=== PATIENT | male | born 1955 | race Caucasian/White ===

== ENCOUNTER 2017-02-27 11:21 | Emergency (ER) | payer OTHER ==
[2017-02-27] MEDS ORDERED: DILAUDID INJ IM ONE (11:34)
[2017-02-27] MEDS ORDERED: NS 1000 ML 1,000 ML ONE (11:36)
[2017-02-27 11:37] VITALS: BMI 28.7
--- NOTE | 2017-02-27 11:37 | DR.GENAD ---
HPI - PCP Primary Care Physician: nfd - Complaint/Symptoms Chief Complaint Doctors Comments: Patient was using a floor leveling ageng ( Luke) one week ago states that he had blister formatin of both hands 10/10 pain. He continues to have pain s/p ruptering the blisters of the hands but improving> The penis continues to be painful and monroe. Chief Complaint:: patient stated he was using hydrolic cement sunday and got it on his hands. he has 2 blisters to each palm with the skin pealing back. he also stated he has blisters on his penis and it monroe to urinate. - Source History Provided: Patient - Mode of Arrival Mode of Arrival: Ambulatory - Timing Onset of Chief Complaint: 02/25/17 PMH - PMH Past Medical History: Yes Past Medical History: Hyperthyroidism Past Surgical History: Yes Surgical History: Ortho Surgery - Family History History of Family Medical Conditions: No - Social History Does patient currently use any type of tobacco product: No Have you used tobacco products in the last 12 months: No Type of Tobacco Use: None Does any household member use tobacco: No Alcohol Use: None Do you use any recreational Drugs:: No Lives Where: Home - infectious screening In the last 2 months have you had wt loss of >10#?: NO Have you had fever, night sweats or hemotysis?: No Have you traveled outside the country in the last 6 months?: No Isolation: Standard ROS - Review of Systems Eyes: No Symptoms Reported ENTM: No Symptoms Reported Respiratoy: No Symptoms Reported Cardiovascular: No Symptoms Reported Gastrointestinal/Abdominal: No Symptoms Reported Genitourinary: No Symptoms Reported Neurological: No Symptoms Reported Musculoskeletal: No Symptoms Reported Integumentary: No Symptoms Reported Hematologic/Lymphatic: No Symptoms Reported Endocrine: No Symptoms Reported Psychiatric: No Symptoms Reported All Other Systems: Reviewed and Negative PE - Vital Signs Vitals: Temperature 98.9 F Pulse Rate [Right Brachial] 70 Pulse Rate 91 Respiratory Rate 16 Blood Pressure [Right Arm] 172/98 Blood Pressure 223/107 O2 Sat by Pulse Oximetry 99 - General General Appearance: Alert, In No Apparent Distress, Anxious - Head Head Exam: Normal Inspection, Atraumatic - Eyes Eye exam: Normal Appearance, PERRL, EOMI - ENT ENT Exam: Normal Exam External Ear Exam: Normal External Inspection TM/Canal Exam: Bilateral Normal Nose Exam: Normal Nose Exam Mouth Exam: Normal Inspection Throat Exam: Normal Inspection - Neck Neck Exam: Normal Inspection - Chest Chest Inspection: Normal Inspection - Respiratory Respiratory Exam: Normal Lung Sounds Bilat Respiratory Exam: Bilateral Clear to Auscultation - Cardiovascular Cardiovascular Exam: Regular Rate, Normal Rhythm - Abdominal Exam Abdominal Exam: Normal Inspection, Normal Bowel Sounds Abdominal Tenderness: negative: RUQ, RLQ, LUQ, LLQ, Epigastrium, Suprapubic, Diffuse, Mild, Moderate, Severe, Other - Extremities Extremities Exam: Other (peeling of palmar surface of hands) - Back Back Exam: Normal Inspection, Full ROM - Neurologic Neurological Exam: Alert, Oriented X3, CN II-XII Intact - Psychiatric Psychiatric Exam: Normal Affect, Normal Mood - Skin Skin Exam: Warm, Dry, Other (penis is irritated slightly edematous glans reddish with minimal fissuring of shaft) Course - Treatment Treatment: [facility] with [facility], recommended sending to the [facility], will see between 8 and 10AM; NPO after midnight. Pain is controlled. - Diagnosis Discharge Problem: corresive contact dermatitis Contact dermatitis Qualifiers: Contact dermatitis type: irritant Contact dermatitis trigger: solvent Qualified Code(s): L24.2 - Irritant contact dermatitis due to solvents - Discharge Plan Condition: Stable - Follow ups/Referrals Follow ups/Referrals: NFD,None [Primary Care Provider] - 3 days - Instructions
[2017-02-27] MEDS ORDERED: DILAUDID INJ ONE (11:40)
[2017-02-27] MEDS ORDERED: DILAUDID INJ IVP ONE (11:48)
[2017-02-27] MEDS ORDERED: CATAPRES TAB 0.2 MG PO ONE (11:54)
[2017-02-27] MEDS ORDERED: CATAPRES TAB 0.2 MG ONE (11:55)
[2017-02-27] MEDS ORDERED: NS 1000 ML 1,000 ML IV SCH (12:00)
[2017-02-27 12:25] VITALS: BP 172/98
== END 2017-02-27 12:56 | disposition home or self-care (01) ==
LOC: ER 11:30
DX: L30.8 Other specified dermatitis (principal); L24.2 Irritant contact dermatitis due to solvents
CPT/HCPCS: 96365; 96374; 99283; A4222